=== PATIENT | male | born 1995 | race Caucasian/White ===

== ENCOUNTER 2022-04-04 11:49 | Emergency (ER) | payer OTHER | END 2022-04-04 15:26 | disposition left against medical advice (07) | LOC: FER 11:49 | DX: M79.641 Pain in right hand (principal); R22.31 Localized swelling, mass and lump, right upper limb; Z53.29 Procedure and treatment not carried out because of patient's decision for other reasons; Z28.310 Unvaccinated for COVID-19 | CPT/HCPCS: 73130 ==